=== PATIENT | female | born 1950 | race Two or more races ===

== ENCOUNTER 2019-05-17 18:03 | Inpatient (IN) | payer OTHER ==
[~2019-05-17] VITALS: Ht 162.6 cm; Wt 76.7 kg
[2019-05-17 19:42] LABS: BASOPHILS % 0.5 % (0.0-2.0); EOSINOPHILS % 1.4 % (0.0-5.0); HEMATOCRIT. 40.7 % (36.0-48.0); HEMOGLOBIN. 13.7 g/dL (12.0-16.0); LYMPHOCYTES % 11.3 % (20.0-50.0); MEAN CORPUSCULAR HEMOGLOBIN 29.5 pg (28.0-32.0); MEAN CORPUSCULAR VOLUME 87.9 fL (81.0-99.0); MEAN PLATELET VOLUME 9.6 fl (7.4-10.4); MONOCYTES % 7.1 % (2.0-8.0); NEUTROPHILS % 79.7 % (40.0-76.0); PLATELET 217 x1000/uL (130-400); RED BLOOD CELL COUNT 4.64 mill/uL (4.2-5.4); RED CELL DISTRIBUTION WIDTH 13.8 % (11.6-14.6)
[2019-05-17 19:45] LABS: CHLORIDE 106 mEq/L (98-107)
[2019-05-17] MEDS ORDERED: DEXT 5%/0.9% NACL 1,000 ML IV ONE (22:15)
[2019-05-18] VITALS (8 sets, daily range): BP systolic 121–163; BP diastolic 62–77
[2019-05-18] MEDS ORDERED: ZOLPIDEM TARTRATE 5MG TABLET PO ONE (01:45)
[2019-05-18] MEDS ORDERED: TELM80TA8 MT (10:11)
[2019-05-18] MEDS ORDERED: MONT10TA24 MT (10:13)
[2019-05-18] MEDS ORDERED: CETI10TA10 MT (10:14)
[2019-05-18] MEDS ORDERED: ESCI10TA61 MT (10:15)
[2019-05-18] MEDS ORDERED: METO-411 MT (10:16)
[2019-05-18] MEDS ORDERED: CHLO50TA MT (10:18)
[2019-05-18] MEDS ORDERED: ASPI-1497 MT (10:19)
[2019-05-18] MEDS ORDERED: UMEC1DIS INH (10:20)
[2019-05-18] MEDS ORDERED: DEXTROSE 50% WATER 50ML SYRINGE IV PRN (10:45)
[2019-05-18] MEDS ORDERED: ACETAMINOPHEN 650MG SUPP PR PRN (11:00)
[2019-05-18] MEDS ORDERED: INSULIN LISPRO 100 UNITS/ML SUBCUT SCH ×2 (11:00→13:00)
[2019-05-18] MEDS ORDERED: ONDANSETRON HCL 4MG/2ML INJ IV PRN (11:00)
[2019-05-18] MEDS ORDERED: ACETAMINOPHEN 325MG TABLET PO PRN (11:00)
[2019-05-18] MEDS ORDERED: LORAZEPAM 0.5MG TABLET PO PRN (11:00)
[2019-05-18] MEDS ORDERED: IPRATROPIUM/ALBUTEROL 0.5-3(2.5)MG/3ML NEB NEB PRN (11:00)
[2019-05-18] MEDS ORDERED: HYDRALAZINE 20MG/ML VIAL IV PRN (11:00)
[2019-05-18] MEDS ORDERED: CLONIDINE 0.1MG TABLET PO PRN (11:00)
[2019-05-18] MEDS ORDERED: GUAIFENESIN 200MG/10ML SUGAR FREE UDC PO PRN (11:00)
[2019-05-18] MEDS ORDERED: NA PHOS,M-B/NA PHOS,DI-BA ENEMA 118ML PR PRN (11:00)
[2019-05-18] MEDS ORDERED: DIPHENHYDRAMINE 50MG/ML VIAL IV PRN (11:00)
[2019-05-18] MEDS ORDERED: HYDROCODONE/ACETAMINOPHEN 5/325MG TABLET PO PRN (11:00)
[2019-05-18] MEDS ORDERED: DOCUSATE SODIUM 100MG CAPSULE PO PRN (11:00)
[2019-05-18] MEDS ORDERED: MAGNESIUM/ALUMINUM HYDROXIDE/SIMETHICONE 30ML UDC PO PRN (11:00)
[2019-05-18 11:13] LABS: BG BASE EXCESS 0.4 mmol/L (-2.0-2.0); BG CARBOXYHEMOGLOBIN 1.2 % (0.5-1.5); BG DEOXYHEMOGLOBIN 5.8 % (0.0-5.0); BG FRACTION INSPIRED OXYGEN 21; BG HCO3 ACT 24.4 mmol/L (22.0-26.0); BG METHEMOGLOBIN 0.2 % (0.0-1.5); BG OXYGEN SATURATION 94.1 % (92.0-98.5); BG OXYHEMOGLOBIN 92.8 % (94.0-97.0); BG PCO2 37.5 mmHg (35.0-45.0); BG PH 7.432 (7.350-7.450); BG PO2 67.2 mmHg (75.0-100.0); BG SAMPLE SITE RIGHT RADIAL; BG TOTAL HEMOGLOBIN 13.8 g/dL (12.0-18.0); BG VENT MODE ROOM AIR
[2019-05-18] MEDS: BLOOD SUGAR DIAGNOSTIC STRIP TEST SCH ×4 (12:30→22:45)
[2019-05-18] MEDS ORDERED: BLOOD SUGAR DIAGNOSTIC STRIP TEST SCH (12:30)
[2019-05-18 12:51] LABS: EOSINOPHILS % 1.3 % (0.0-5.0); HEMATOCRIT. 39.5 % (36.0-48.0); HEMOGLOBIN. 13.2 g/dL (12.0-16.0); LYMPHOCYTES % 19.7 % (20.0-50.0); MEAN CORPUSCULAR HEMOGLOBIN 29.2 pg (28.0-32.0); MEAN CORPUSCULAR VOLUME 87.3 fL (81.0-99.0); MEAN PLATELET VOLUME 10.2 fl (7.4-10.4); MONOCYTES % 7.7 % (2.0-8.0); NEUTROPHILS % 70.3 % (40.0-76.0); PLATELET 206 x1000/uL (130-400); RED BLOOD CELL COUNT 4.52 mill/uL (4.2-5.4); RED CELL DISTRIBUTION WIDTH 13.4 % (11.6-14.6)
[2019-05-18 12:59] LABS: CHLORIDE 99 mEq/L (98-107)
[2019-05-18 13:03] LABS: PROTHROMBIN TIME 10.5 sec (9.6-11.0)
[2019-05-18 14:06] LABS: CREATINE KINASE 51 IU/L (26-192)
[2019-05-18] MEDS: HYDRALAZINE HCL 25MG TABLET PO SCH ×2 (14:09→21:06)
[2019-05-18] MEDS: ENOXAPARIN 40MG/0.4ML SYR SUBCUT SCH (14:10)
[2019-05-18] MEDS: SODIUM CHLORIDE 0.45% 1,000 ML IV SCH (14:12)
[2019-05-18 14:13] LABS: CREATINE KINASE MB FRACTION 1.2 ng/mL (0.5-3.6)
[2019-05-18] MEDS ORDERED: INSULIN LISPRO 100 UNITS/ML SUBCUT NR (18:15)
[2019-05-18] MEDS: INSULIN LISPRO 100 UNITS/ML SUBCUT SCH ×2 (18:39→21:05)
[2019-05-18] MEDS ORDERED: INSULIN GLARGINE UD 100 UNITS/ML SYR SUBCUT NR (19:30)
[2019-05-18] MEDS ORDERED: TEMAZEPAM 15MG CAPSULE PO PRN (21:00)
[2019-05-18] MEDS ORDERED: FAMOTIDINE 20MG TABLET PO SCH (21:00)
[2019-05-19] VITALS (11 sets, daily range): BP systolic 124–161; BP diastolic 64–93
[2019-05-19] MEDS ORDERED: BENZ100C86 PO (01:21)
[2019-05-19 01:37] LABS: CREATINE KINASE 66 IU/L (26-192)
[2019-05-19 01:38] LABS: CREATINE KINASE MB FRACTION < 1.0 ng/mL (0.5-3.6)
[2019-05-19] MEDS: BLOOD SUGAR DIAGNOSTIC STRIP TEST SCH ×4 (02:45→12:00)
[2019-05-19] MEDS: HYDRALAZINE HCL 25MG TABLET PO SCH ×2 (06:21→14:31)
[2019-05-19 08:11] LABS: BASOPHILS % 0.9 % (0.0-2.0); EOSINOPHILS % 3.9 % (0.0-5.0); HEMATOCRIT. 39.6 % (36.0-48.0); HEMOGLOBIN. 13.1 g/dL (12.0-16.0); LYMPHOCYTES % 22.3 % (20.0-50.0); MEAN CORPUSCULAR VOLUME 88.1 fL (81.0-99.0); MEAN PLATELET VOLUME 10.3 fl (7.4-10.4); NEUTROPHILS % 62.9 % (40.0-76.0); PLATELET 195 x1000/uL (130-400); RED CELL DISTRIBUTION WIDTH 13.2 % (11.6-14.6)
[2019-05-19 08:28] LABS: CHLORIDE 100 mEq/L (98-107)
[2019-05-19 08:37] LABS: LDL CHOLESTEROL 71 mg/dL (5-100)
[2019-05-19 08:38] LABS: HDL CHOLESTEROL 82 mg/dL (40-59)
[2019-05-19] MEDS: INSULIN LISPRO 100 UNITS/ML SUBCUT SCH ×2 (08:49→13:29)
[2019-05-19] MEDS: ENOXAPARIN 40MG/0.4ML SYR SUBCUT SCH (08:56)
[2019-05-19] MEDS ORDERED: INSULIN GLARGINE UD 100 UNITS/ML SYR SUBCUT SCH ×2 (10:00→12:00)
[2019-05-19] MEDS: SODIUM CHLORIDE 0.45% 1,000 ML IV SCH (11:10)
[2019-05-19] MEDS ORDERED: POTASSIUM CHLORIDE 20MEQ TABLET SR PO SCH (12:15)
[2019-05-19] MEDS ORDERED: BLOOD SUGAR DIAGNOSTIC STRIP TEST SCH (17:30)
[2019-05-19] MEDS ORDERED: INSULIN LISPRO 100 UNITS/ML SUBCUT ONE (17:30)
[2019-05-19] MEDS ORDERED: INSULIN LISPRO 100 UNITS/ML SUBCUT SCH (18:00)
[2019-05-20] MEDS ORDERED: BENZONATATE 100MG CAPSULE PO ONE (09:00)
[2019-05-20] MEDS ORDERED: BENZONATATE 100MG CAPSULE PO SCH (09:00)
== END 2019-05-19 18:20 | disposition home or self-care (01) | DRG 637 ==
LOC: ER 18:03 → 5EST 05-18 01:02 → EDBEDREQ 05-18 01:08 → EDBEDREQDT 05-18 01:08 → EDBEDREQTM 05-18 01:08 → ENRESERV 05-18 07:51
PROVIDERS: ADMIT Internal Medicine; ATTEND Internal Medicine
DX: E11.65 Type 2 diabetes mellitus with hyperglycemia (principal); G93.41 Metabolic encephalopathy; E87.1 Hypo-osmolality and hyponatremia; E11.649 Type 2 diabetes mellitus with hypoglycemia without coma; I10 Essential (primary) hypertension; J44.9 Chronic obstructive pulmonary disease, unspecified; Z88.2 Allergy status to sulfonamides; Z79.82 Long term (current) use of aspirin; Z79.899 Other long term (current) drug therapy
CPT/HCPCS: 36415; 36600; 71045; 80048; 80053; 80061; 82375; 82550; 82553; 82805; 82962; 83036; 83880; 84439; 84443; 84484; 85025; 93005; 93306; 93970; 97162; 97535; 99291; J1650; J1815; J7042

== ENCOUNTER 2020-05-25 06:05 | Inpatient (IN) | payer OTHER ==
[~2020-05-25] VITALS: Ht 162.6 cm; Wt 65.8 kg
[~2020-05-25 06:05] MED LIST: ASPI-1497 MT; BENZ100C86 PO; CETI10TA10 MT; CHLO50TA MT; ESCI10TA MT; METO-411 MT; MONT10TA96 MT; TELM80TA8 MT; UMEC1DIS INH
[2020-05-25 07:03] LABS: CHLORIDE 90 mEq/L (98-107)
[2020-05-25 07:08] LABS: BASOPHILS % 0.4 % (0.0-2.0); EOSINOPHILS % 0.2 % (0.0-5.0); HEMOGLOBIN. 12.7 g/dL (12.0-16.0); LYMPHOCYTES % 7.2 % (20.0-50.0); MEAN CORPUSCULAR HEMOGLOBIN 30.1 pg (28.0-32.0); MEAN CORPUSCULAR VOLUME 87.6 fL (81.0-99.0); MEAN PLATELET VOLUME 9.9 fl (7.4-10.4); MONOCYTES % 6.9 % (2.0-8.0); NEUTROPHILS % 85.3 % (40.0-76.0); PLATELET 263 x1000/uL (130-400); RED BLOOD CELL COUNT 4.22 mill/uL (4.2-5.4)
[2020-05-25] MEDS ORDERED: POTASSIUM BICARB/CIT ACID 25 MEQ TABLET.EFF PO ONE (07:45)
[2020-05-25] MEDS ORDERED: ONDANSETRON HCL 4MG/2ML INJ IV ONE ×2 (07:45→09:15)
[2020-05-25] MEDS ORDERED: SODIUM CHLORIDE 0.9% 1,000 ML IV ONE (07:45)
[2020-05-25] MEDS ORDERED: MORPHINE SULFATE 4 MG/ML CPJ (NOT FOR IM USE) IV ONE (08:30)
[2020-05-25] MEDS ORDERED: ASPIRIN 325MG EC TABLET PO ONE (09:15)
[2020-05-25] MEDS ORDERED: KCL 20MEQ/100ML PREMIX 100 ML IV ONE (09:15)
[2020-05-25 09:24] LABS: CLARITY URINE CLEAR (CLEAR); COLOR URINE YELLOW (YELLOW); KETONES URINE TRACE (NEGATIVE); LEUKOCYTE ESTERASE URINE NEGATIVE (NEGATIVE); NITRITE URINE NEGATIVE (NEGATIVE); OCCULT BLOOD URINE NEGATIVE (NEGATIVE); PROTEIN URINE NEGATIVE (NEGATIVE); SPECIFIC GRAVITY URINE 1.015 (1.005-1.030); UROBILINOGEN URINE 0.2 E.U./dL (0.2-1.0)
[2020-05-25 14:53] VITALS: BP 130/69
[2020-05-25] MEDS ORDERED: INSLIS SUBCUT ×2 (15:54→15:55)
[2020-05-25] MEDS ORDERED: ONDANSETRON HCL 4MG/2ML INJ IV PRN (16:00)
[2020-05-25] MEDS ORDERED: DEXTROSE 50% WATER 50ML SYRINGE IV PRN (16:15)
[2020-05-25] MEDS: BENZONATATE 100MG CAPSULE PO SCH (17:17)
[2020-05-25] MEDS: ENOXAPARIN 40MG/0.4ML SYR SUBCUT SCH (17:17)
[2020-05-25] MEDS: DEXAMETHASONE 4MG/ML 1ML VIAL IV SCH (17:18)
[2020-05-25] MEDS: CEFTRIAXONE 1,000 MG in DEXTROSE 5% WATER 50 ML IV SCH (17:47)
[2020-05-25] MEDS: BLOOD SUGAR DIAGNOSTIC STRIP TEST SCH ×2 (17:48→21:11)
[2020-05-25] MEDS: AZITHROMYCIN 500 MG in DEXT 5% WATER 250 ML IV SCH (17:48)
[2020-05-25] MEDS: INSULIN LISPRO 100 UNITS/ML SUBCUT SCH ×2 (17:52→21:00)
[2020-05-25 20:00] VITALS: BP 144/69
[2020-05-25] MEDS: ACETAMINOPHEN 325MG TABLET PO PRN (20:06)
[2020-05-25] MEDS: INSULIN GLARGINE UD 100 UNITS/ML SYR SUBCUT SCH (22:00)
[2020-05-26] VITALS: BP 172/76
[2020-05-26] MEDS: ALBUTEROL 6.7GM HFA INHALER ORI SCH ×5 (00:05→23:48)
[2020-05-26 04:00] VITALS: BP 174/75
[2020-05-26 06:18] LABS: BASOPHILS % 0.2 % (0.0-2.0); HEMATOCRIT. 34.3 % (36.0-48.0); LYMPHOCYTES % 11.7 % (20.0-50.0); MEAN CORPUSCULAR HEMOGLOBIN 30.6 pg (28.0-32.0); MEAN PLATELET VOLUME 10.2 fl (7.4-10.4); MONOCYTES % 6.1 % (2.0-8.0); PLATELET 229 x1000/uL (130-400); RED CELL DISTRIBUTION WIDTH 12.8 % (11.6-14.6)
[2020-05-26 07:05] LABS: CHLORIDE 96 mEq/L (98-107)
[2020-05-26] MEDS: BLOOD SUGAR DIAGNOSTIC STRIP TEST SCH ×4 (07:40→21:00)
[2020-05-26] MEDS ORDERED: MONTELUKAST SODIUM 10MG TABLET PO SCH (09:00)
[2020-05-26] MEDS ORDERED: ASPIRIN 81MG EC TABLET PO SCH (09:00)
[2020-05-26] MEDS: BENZONATATE 100MG CAPSULE PO SCH ×3 (09:33→16:51)
[2020-05-26] MEDS: DEXAMETHASONE 4MG/ML 1ML VIAL IV SCH (09:34)
[2020-05-26] MEDS: INSULIN LISPRO 100 UNITS/ML SUBCUT SCH ×4 (10:15→21:00)
[2020-05-26 12:00] VITALS: BP 155/53
[2020-05-26] MEDS ORDERED: INSULIN LISPRO 100 UNITS/ML SUBCUT NR ×2 (12:16→19:30)
[2020-05-26] MEDS: INSULIN GLARGINE UD 100 UNITS/ML SYR SUBCUT SCH (12:23)
[2020-05-26] MEDS ORDERED: INSULIN GLARGINE UD 100 UNITS/ML SYR SUBCUT STA (13:00)
[2020-05-26 16:00] VITALS: BP 98/66
[2020-05-26] MEDS: ACETAMINOPHEN 325MG TABLET PO PRN ×2 (16:50→18:45)
[2020-05-26] MEDS: AZITHROMYCIN 500 MG in DEXT 5% WATER 250 ML IV SCH (16:51)
[2020-05-26] MEDS: CEFTRIAXONE 1,000 MG in DEXTROSE 5% WATER 50 ML IV SCH (16:51)
[2020-05-26] MEDS: ENOXAPARIN 40MG/0.4ML SYR SUBCUT SCH ×2 (16:51→17:00)
[2020-05-26 21:00] VITALS: BP 154/82
[2020-05-26] MEDS ORDERED: INSULIN GLARGINE UD 100 UNITS/ML SYR SUBCUT SCH (22:00)
[2020-05-27] MEDS ORDERED: INSULIN LISPRO 100 UNITS/ML SUBCUT SCH (07:40)
== END 2020-05-26 23:30 | disposition left against medical advice (07) | DRG 177 ==
LOC: ER 06:05 → 7WST 10:35 → ENRESERV 12:44
PROVIDERS: ADMIT Internal Medicine; ATTEND Internal Medicine
DX: U07.1 COVID-19 (principal); J96.00 Acute respiratory failure, unspecified whether with hypoxia or hypercapnia; J44.9 Chronic obstructive pulmonary disease, unspecified; I10 Essential (primary) hypertension; M54.5 Low back pain; E87.6 Hypokalemia; E11.65 Type 2 diabetes mellitus with hyperglycemia; X58.XXXA Exposure to other specified factors, initial encounter; S82.891A Other fracture of right lower leg, initial encounter for closed fracture; Z53.29 Procedure and treatment not carried out because of patient's decision for other reasons; T38.0X5A Adverse effect of glucocorticoids and synthetic analogues, initial encounter; Y92.89 Other specified places as the place of occurrence of the external cause; Z87.891 Personal history of nicotine dependence; Y93.89 Activity, other specified; Y99.8 Other external cause status
CPT/HCPCS: 36415; 71045; 80048; 80053; 81003; 82962; 83036; 84484; 85025; 85379; 87635; 93005; 93970; 99285; J0456; J0696; J1100; J1650; J1815; J2270; J2405; J3480; J7030; J7040; J7060

== ENCOUNTER 2022-05-31 01:55 | Emergency (ER) | payer OTHER ==
[~2022-05-31] VITALS: Ht 162.6 cm; Wt 66.0 kg
[~2022-05-31 01:55] MED LIST changes: -CETI10TA10 MT; +CETI10TA11 MT; +ESCI-7 MT; -ESCI10TA MT; +INSLIS SUBCUT; +MONT-39 MT; -MONT10TA96 MT
[2022-05-31 01:58] VITALS: BP 153/63
[2022-05-31 02:34] LABS: HEMATOCRIT. 35.3 % (36.0-48.0); MEAN CORPUSCULAR HEMOGLOBIN 29.8 pg (28.0-32.0); MEAN CORPUSCULAR VOLUME 88.1 fL (81.0-99.0); MEAN PLATELET VOLUME 9.2 fl (7.4-10.4); PLATELET 202 x1000/uL (130-400); RED BLOOD CELL COUNT 4.01 mill/uL (4.2-5.4); RED CELL DISTRIBUTION WIDTH 13.3 % (11.6-14.6)
[2022-05-31 02:41] LABS: CHLORIDE 90 mEq/L (98-107)
[2022-05-31 03:04] LABS: ATYPICAL LYMPHOCYTES 3
[2022-05-31 03:05] LABS: PLATELET ESTIMATE NORMAL
[2022-05-31 05:30] LABS: *AMPHETAMINES SCREEN URINE NEGATIVE (NEGATIVE); *BARBITURATES SCREEN URINE NEGATIVE (NEGATIVE); *BENZODIAZEPINES SCREEN URINE NEGATIVE (NEGATIVE); *COCAINE SCREEN URINE NEGATIVE (NEGATIVE); CANNABINOID URINE SCREEN NEGATIVE (NEGATIVE); METHADONE URINE SCREEN NEGATIVE (NEGATIVE); OPIATES URINE SCREEN NEGATIVE (NEGATIVE); PHENCYCLIDINE URINE SCREEN NEGATIVE (NEGATIVE)
== END 2022-05-31 07:36 | disposition home or self-care (01) ==
LOC: ER 02:20
DX: E11.649 Type 2 diabetes mellitus with hypoglycemia without coma (principal); E11.65 Type 2 diabetes mellitus with hyperglycemia; I10 Essential (primary) hypertension; J44.9 Chronic obstructive pulmonary disease, unspecified; Z88.2 Allergy status to sulfonamides; Z79.4 Long term (current) use of insulin; Z79.82 Long term (current) use of aspirin; Z79.899 Other long term (current) drug therapy
CPT/HCPCS: 36415; 71045; 80053; 80305; 80320; 82962; 83880; 84484; 85025; 93005; 99285; G0480